=== PATIENT | female | born 1990 | race Caucasian/White ===

== ENCOUNTER 2017-11-11 20:52 | Emergency (ER) | payer OTHER, SELFPAY ==
[2017-11-11 20:54] VITALS: BP 121/73; PULSE 114; RESP 18; TEMP 37.5; O2SAT 98; BMI 21.9
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
[2017-11-11] MEDS: Ibuprofen 600 MG Tablet PO (22:02)
[2017-11-11 23:15] VITALS: BP 120/70; PULSE 88; RESP 16; O2SAT 100
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
== END 2017-11-11 23:34 | disposition home or self-care (01) ==
PROVIDERS: Emergency Provider Emergency Medicine
DX: S01.312A Laceration without foreign body of left ear, initial encounter (principal); M25.551 Pain in right hip; M25.552 Pain in left hip; V89.2XXA Person injured in unspecified motor-vehicle accident, traffic, initial encounter; Y93.9 Activity, unspecified; Y92.9 Unspecified place or not applicable
CPT/HCPCS: 12013; 72170; 99284